=== PATIENT | male | born 1985 ===

== ENCOUNTER 2024-10-11 14:12 | Emergency (ER) | payer BC ==
[2024-10-11 14:24] VITALS: BP 161/100; PULSE 80
== END 2024-10-11 15:16 | disposition home or self-care (01) ==
LOC: JD.ED 14:12
DX: S46.212A Strain of muscle, fascia and tendon of other parts of biceps, left arm, initial encounter (principal); I10 Essential (primary) hypertension; X50.0XXA Overexertion from strenuous movement or load, initial encounter; Y93.89 Activity, other specified
CPT/HCPCS: 99283